=== PATIENT | female | born 1970 | race Caucasian/White ===

== ENCOUNTER 2017-10-29 20:37 | Emergency (ER) | payer OTHER ==
[~2017-10-29] VITALS: Ht 165.1 cm; Wt 81.4 kg
[~2017-10-29 20:37] MED LIST: ADDERALL15 MG PO; ADDERALL20 MG PO; COGENTIN1 MG PO; GEODON40 MG PO; LEVOTHYROXINE25 MCG PO; RESTORIL15 MG PO; RESTORIL30 MG PO; RISPERIDONE1 MG PO; TEMAZEPAM15 MG PO; WELLBUTRIN XL150 MG PO; XANAX0.25 MG PO; ZIPRASIDONE HCL40 MG PO
[2017-10-29 22:25] LABS: HEMATOCRIT 41.4 % (36.0-46.0); HEMOGLOBIN 14.4 G/DL (11.9-15.5); MCH 30.8 PG (29.0-34.0); MCHC 34.8 G/DL (30.0-36.0); MCV 88.7 FL (83-99); PLATELET COUNT 402 K/uL (156-360); RED BLOOD COUNT 4.67 M/uL (3.80-5.20); WHITE BLOOD COUNT 16.3 K/uL (4.1-10.2)
[2017-10-29 22:33] LABS: ALBUMIN 4.1 g/dL (3.2-4.8); CHLORIDE 104 mEq/L (99-109); POTASSIUM 4.3 mEq/L (3.7-5.4); SODIUM 136 mEq/L (136-147)
[2017-10-29 22:36] LABS: GLUCOSE 102 mg/dL (70-99); TOTAL PROTEIN 6.4 g/dL (6.4-8.3)
[2017-10-29 22:37] LABS: TOTAL BILIRUBIN 0.3 mg/dL (0.0-1.0)
[2017-10-29 22:38] LABS: SERUM ETHYL ALCOHOL < 10 mg/dL
[2017-10-29 22:39] LABS: CREATININE 0.7 mg/dL (0.6-1.3); GFR ESTIMATE (CALCULATED) > 59 mL/min/
[2017-10-29 22:40] LABS: ALKALINE PHOSPHATASE 64 IU/L (3-129)
[2017-10-29 22:41] LABS: AST (GOT) 15 IU/L (2-34); UREA NITROGEN (BUN) 9 mg/dL (9-23)
[2017-10-29 22:43] LABS: ACETAMINOPHEN (TYLENOL) < 10 mcg/mL (10-30); ALT (GPT) 11 IU/L (3-49); SALICYLATE < 5.0 MG/DL (15-30)
[2017-10-29 22:54] LABS: QUANTITATIVE HCG < 4.0 MIU/ML
[2017-10-30 01:09] LABS: APPEARANCE CLEAR ((CLEAR)); BILIRUBIN NEGATIVE; BLOOD NEGATIVE; COLOR STRAW ((YELLOW)); GLUCOSE (STRIP) NEGATIVE; KETONES 5; LEUKOCYTES NEGATIVE; NITRITE NEGATIVE; PROTEIN (STRIP) NEGATIVE; SPECIFIC GRAVITY 1.008 (1.000-1.030); UCUL ADDED? NO; UROBILINOGEN 0.2 MG/DL (0.2-1.0)
[2017-10-30 01:22] LABS: AMPHETAMINE NEGATIVE (500 ng/mL); BARBITURATES NEGATIVE (200 ng/mL); BENZODIAZEPINES NEGATIVE (150 ng/mL); BUPRENORPHINE NEGATIVE (10 ng/mL); COCAINE NEGATIVE (150 ng/mL); METHADONE NEGATIVE (200 ng/mL); METHAMPHETAMINE NEGATIVE (500 ng/mL); OPIATES (MORPHINE) NEGATIVE (100 ng/mL); OXYCODONE NEGATIVE (100 ng/mL); PHENCYCLIDINE NEGATIVE (25 ng/mL); PROPOXYPHENE NEGATIVE (300 ng/mL); THC CANNABINOIDS NEGATIVE (50 ng/mL); TRICYCLIC ANTIDEPRESSANTS NEGATIVE (300 ng/mL)
[2017-10-30 11:53] VITALS: BP 107/53
== END 2017-10-30 12:10 ==
LOC: EME 20:37
DX: T43.212A Poisoning by selective serotonin and norepinephrine reuptake inhibitors, intentional self-harm, initial encounter (principal); T42.6X2A Poisoning by other antiepileptic and sedative-hypnotic drugs, intentional self-harm, initial encounter; T43.022A Poisoning by tetracyclic antidepressants, intentional self-harm, initial encounter; R11.2 Nausea with vomiting, unspecified; F25.1 Schizoaffective disorder, depressive type; F17.200 Nicotine dependence, unspecified, uncomplicated; Z90.49 Acquired absence of other specified parts of digestive tract
CPT/HCPCS: 80048; 80053; 81003; 84702; 85027; 90837; 93005; G0480; J2405; J7040; J7120